=== PATIENT | female | born 1960 | race Caucasian/White ===

== ENCOUNTER 2022-03-10 22:52 | Emergency (ER) | payer SELFPAY ==
[~2022-03-10] VITALS: Ht 157.5 cm; Wt 54.0 kg
[2022-03-11 00:40] VITALS: BP 127/68
== END 2022-03-11 00:50 ==
LOC: ER 22:52
DX: F10.129 Alcohol abuse with intoxication, unspecified (principal); Y90.9 Presence of alcohol in blood, level not specified; V43.52XA Car driver injured in collision with other type car in traffic accident, initial encounter; V47.5XXA Car driver injured in collision with fixed or stationary object in traffic accident, initial encounter; Y93.89 Activity, other specified; Y92.488 Other paved roadways as the place of occurrence of the external cause
CPT/HCPCS: 99283